=== PATIENT | female | born 1955 | race Caucasian/White ===

== ENCOUNTER → 2017-02-21 | Outpatient (CLI) | payer OTHER ==
[~2017-02-21] MED LIST: ASPIR 8181 MG PO; BRILINTA 90 MG90 MG PO; BRILINTA90 MG PO; EFFIENT10 MG PO; FOLIC ACID 1 MG1 MG PO; HABITROL 21 MG P1 EA TOP; HYZAAR 100-251 EACH PO; LIPITOR TAB 2020 MG PO; LOPRESSOR 25 MG25 MG PO; LORTAB 7.5-3251 EACH PO; NEURONTIN 300300 MG PO; NITROSTAT 0.40.4 MG SL; NITROSTAT0.4 MG SL; NORVASC 5 MG TAB5 MG PO; NORVASC5 MG PO; PRINIVIL5 MG PO; RANEXA500 MG PO; RESTASIS 0.05%1 EACH OU; SYMBICORT 16010.2 GM INH; TRAMADOL HCL50 MG PO; TREXALL7.5 MG PO; TYLENOL 325MG325 MG PO; ULTRAM50 MG PO; VENTOLIN INH; ZANTAC150 MG PO
== END ==
LOC: HEART 5 12:59
DX: R00.1 Bradycardia, unspecified (principal)

== ENCOUNTER → 2021-04-20 | Outpatient (CLI) | payer OTHER ==
[~2021-04-20] MED LIST changes: -ASPIR 8181 MG PO; +ASPIRIN EC81 MG PO; +CATAPRES0.3 MG PO; +CRESTOR20 MG PO; +GABAPENTIN100 MG PO; +LISINOPRIL-HCT1 EAC1 PO; +LORATADINE10 MG PO; +PROTONIX40 MG PO; -TYLENOL 325MG325 MG PO; +TYLENOL325 MG PO; +VENTOLIN HFA 66.7 GM INH; +VITAMIN D21250 MCG PO
== END ==
LOC: ECHO 12:39
DX: I25.10 Atherosclerotic heart disease of native coronary artery without angina pectoris (principal); R94.30 Abnormal result of cardiovascular function study, unspecified; I50.22 Chronic systolic (congestive) heart failure; I08.1 Rheumatic disorders of both mitral and tricuspid valves
CPT/HCPCS: ECHO; 93306

== ENCOUNTER → 2022-06-16 | Outpatient (CLI) | payer MEDICARE, OTHER ==
[~2022-06-16] MED LIST changes: +CLEOCIN HCL300 MG PO; +ENTRESTO 49 MG1 EACH PO; +HYDROCODON-ACE1 EAC4 PO; +LEVOFLOXACIN500 MG PO; +REPATHA SY140 MG/1 M SQ
[2022-06-16 11:19] LABS: HEMOGLOBIN 15.3 gm/dl (12.3-15.3); RED BLOOD COUNT 4.92 M/UL (4.00-5.10); WHITE BLOOD COUNT 6.8 K/UL (4.5-11.0)
== END ==
LOC: LAB 10:50
PROVIDERS: Internal Medicine Cardiovascular Disease
DX: Z01.818 Encounter for other preprocedural examination (principal); I11.0 Hypertensive heart disease with heart failure; I50.42 Chronic combined systolic (congestive) and diastolic (congestive) heart failure; I25.5 Ischemic cardiomyopathy; R06.02 Shortness of breath
CPT/HCPCS: 36415; 71046; 80053; 85025

== ENCOUNTER 2022-06-18 07:11 | Outpatient (CLI) | payer MEDICARE, OTHER ==
[~2022-06-18] VITALS: Ht 157.5 cm; Wt 76.3 kg
[~2022-06-18 07:11] MED LIST changes: -CLEOCIN HCL300 MG PO; -ENTRESTO 49 MG1 EACH PO; -HYDROCODON-ACE1 EAC4 PO; -LEVOFLOXACIN500 MG PO; -REPATHA SY140 MG/1 M SQ
[2022-06-18] MEDS ORDERED: REPATHA SY140 MG/1 M SQ (08:17)
[2022-06-18] MEDS ORDERED: ENTRESTO 49 MG1 EACH PO (08:18)
[2022-06-18] MEDS ORDERED: NORVASC5 MG PO (08:18)
[2022-06-18] MEDS ORDERED: LEVOFLOXACIN500 MG PO (11:26)
[2022-06-18] MEDS ORDERED: HYDROCODON-ACE1 EAC4 PO (11:26)
[2022-06-18] MEDS ORDERED: CLEOCIN HCL300 MG PO (11:26)
== END 2022-06-19 11:00 | disposition home or self-care (01) ==
LOC: CATH 07:11 → PROG CARE 11:52 → CATH 06-19 11:00
DX: I25.5 Ischemic cardiomyopathy (principal); I11.0 Hypertensive heart disease with heart failure; I50.22 Chronic systolic (congestive) heart failure; I25.10 Atherosclerotic heart disease of native coronary artery without angina pectoris; I25.2 Old myocardial infarction; Z95.1 Presence of aortocoronary bypass graft; Z79.82 Long term (current) use of aspirin; Z79.899 Other long term (current) drug therapy; Z88.6 Allergy status to analgesic agent; Z87.891 Personal history of nicotine dependence
CPT/HCPCS: 33249; 71045; 93641; 99152; 99153; C1721; C1777; C1898; J1644; J2250; J3010; J3370; J7040; J7050; J7070